=== PATIENT | male | born 1960 | race Caucasian/White ===

== ENCOUNTER → 2025-07-17 14:15 | Outpatient (CLI) | payer SELFPAY ==
--- NOTE | 2025-07-17 14:19 | DI.RAD.S_ITS ---
PROCEDURE: XR SHOULDER RT MIN 2V INDICATIONS: PAIN TECHNIQUE: Three views of the right shoulder were acquired. COMPARISON: None. FINDINGS: Bones: There are no osseous abnormalities. Acromioclavicular and glenohumeral joints: Moderate acromioclavicular degeneration noted. Glenohumeral joint is normal. A 5 mm calcification overlies the axillary recess likely represent a loose body. Soft tissues: No soft tissue swelling, calcification or mass. IMPRESSION: Degeneration. Small loose body axillary recess Dictated by: Michael Healy M.D. on 07/18/2025 at 11:59 Approved by: Michael Healy M.D. on 07/18/2025 at 12:00
== END ==
LOC: RAD 14:17
PROVIDERS: Referring Provider Family Medicine; Visit Provider Family Medicine
DX: M19.011 Primary osteoarthritis, right shoulder (principal); M25.511 Pain in right shoulder; M24.011 Loose body in right shoulder
CPT/HCPCS: 73030

== ENCOUNTER → 2025-07-19 09:03 | Outpatient (CLI) | payer SELFPAY ==
--- NOTE | 2025-07-19 09:08 | DI.RAD.S_ITS ---
PROCEDURE: XR CLAVICLE RT INDICATIONS: Other specified disorders of bone, shoulder TECHNIQUE: 2 views of the clavicle were acquired. COMPARISON: None. FINDINGS: Bones: Minimally displaced oblique fracture of the midclavicle Acromioclavicular and glenohumeral joints: Moderate acromioclavicular and mild glenohumeral degeneration noted. 5 mm calcification overlies the axillary recess which could represent a loose body . Soft tissues: No soft tissue swelling, calcification or mass. IMPRESSION: Minimally displaced oblique fracture- mid clavicle Degeneration Dictated by: Michael Healy M.D. on 07/20/2025 at 10:21 Approved by: Michael Healy M.D. on 07/20/2025 at 10:23
== END ==
LOC: RAD 09:04
PROVIDERS: PCP Family Medicine; Referring Provider Family Medicine; Visit Provider Family Medicine
DX: S42.017A Nondisplaced fracture of sternal end of right clavicle, initial encounter for closed fracture (principal); M19.011 Primary osteoarthritis, right shoulder; M89.8X1 Other specified disorders of bone, shoulder
CPT/HCPCS: 73000